=== PATIENT | female | born 1965 | race African-American/Black ===

== ENCOUNTER → 2019-04-19 | Outpatient (CLI) | payer OTHER | LOC: YHH 14:47 ==

== ENCOUNTER 2020-09-19 09:30 | Inpatient (IN) | payer OTHER ==
[2020-09-19 10:17] VITALS: BMI 26.7
[2020-09-19] MEDS ORDERED: chlordiazePOXIDE HCL 25 MG CAPSULE PO PRN (10:24)
[2020-09-19] MEDS ORDERED: BISMUTH SUBSALICYLATE 524 MG/30 ML UD PO PRN (10:24)
[2020-09-19] MEDS ORDERED: MAGNESIUM HYDROX 2400MG/30ML ORAL SUSPENSION 30 ML CUP PO PRN (10:24)
[2020-09-19] MEDS ORDERED: MENTHOL/PHENOL 1 EACH UD MM PRN (10:24)
[2020-09-19] MEDS ORDERED: IBUPROFEN 400 MG TABLET (FP) PO PRN (10:24)
[2020-09-19] MEDS ORDERED: ONDANSETRON *ODT* 4 MG TABLET SL PRN (10:24)
[2020-09-19] MEDS ORDERED: MAGNESIUM CITRATE 300 ML BOTTLE PO PRN (10:24)
[2020-09-19] MEDS ORDERED: METHOCARBAMOL 500 MG TABLET PO PRN (10:24)
[2020-09-19] MEDS ORDERED: MAG HYDROX/AL HYDROX/SIMETH 30 ML UNIT-DOSE CUP PO PRN (10:24)
[2020-09-19] MEDS: ACETAMINOPHEN 325 MG TABLET (FP) PO PRN (11:23)
[2020-09-19] MEDS: chlordiazePOXIDE HCL 25 MG CAPSULE PO SCH ×3 (11:23→23:13)
[2020-09-19] MEDS: PRENATAL VITAMINS W/ FOLIC ACID TABLET (FP) PO SCH (11:24)
[2020-09-19] MEDS: hydrOXYzine PAMOATE 25 MG CAPSULE (FP) PO SCH ×3 (13:42→23:13)
[2020-09-19 17:03] LABS: HEMATOCRIT 40.3 % (32.4-45.2); HEMOGLOBIN 13.4 GM/dL (10.7-15.3); MCH 32.1 pg (25.7-33.7); MCHC 33.2 g/dl (32.0-36.0); MEAN CELL VOLUME 96.6 fl (80-96); MEAN PLT VOLUME 7.6 fl (7.5-11.1); PLATELET COUNT 316 K/MM3 (134-434); RBC 4.17 M/mm3 (3.60-5.2); WHITE BLOOD COUNT 7.4 K/mm3 (4.0-10.0)
[2020-09-19 17:08] LABS: POTASSIUM 3.7 mmol/L (3.5-5.1)
[2020-09-19 17:11] LABS: CALCIUM 9.6 mg/dL (8.5-10.1)
[2020-09-19 17:12] LABS: BLOOD UREA NITROGEN 18.2 mg/dL (7-18)
[2020-09-19 17:15] LABS: CREATININE 1.2 mg/dL (0.55-1.3)
[2020-09-19 17:16] LABS: BILIRUBIN,TOTAL 0.8 mg/dL (0.2-1)
[2020-09-19 17:17] LABS: TOT PROT 7.6 g/dl (6.4-8.2)
[2020-09-19] MEDS: MELATONIN 5 MG TABLETS PO SCH (23:12)
[2020-09-19] MEDS: THIAMINE HCL 100 MG TABLET (FP) PO SCH (23:13)
[2020-09-20] MEDS: hydrOXYzine PAMOATE 25 MG CAPSULE (FP) PO SCH ×5 (05:33→22:28)
[2020-09-20] MEDS: chlordiazePOXIDE HCL 25 MG CAPSULE PO SCH ×4 (05:33→22:25)
[2020-09-20] MEDS: ACETAMINOPHEN 325 MG TABLET (FP) PO PRN ×3 (05:36→18:16)
[2020-09-20] MEDS: PRENATAL VITAMINS W/ FOLIC ACID TABLET (FP) PO SCH (10:47)
[2020-09-20] MEDS: NICOTINE POLACRILEX 2 MG GUM BUC PRN (18:15)
[2020-09-20] MEDS: THIAMINE HCL 100 MG TABLET (FP) PO SCH (22:25)
[2020-09-20] MEDS: AMITRIPTYLINE HCL 50 MG TABLET PO SCH (22:25)
[2020-09-20] MEDS: risperiDONE 1 MG TABLET PO SCH (22:25)
[2020-09-20] MEDS: MELATONIN 5 MG TABLETS PO SCH (22:26)
[2020-09-21] MEDS: chlordiazePOXIDE HCL 25 MG CAPSULE PO SCH ×4 (06:12→22:42)
[2020-09-21] MEDS: hydrOXYzine PAMOATE 25 MG CAPSULE (FP) PO SCH ×5 (06:14→22:41)
[2020-09-21] MEDS: PRENATAL VITAMINS W/ FOLIC ACID TABLET (FP) PO SCH (10:24)
[2020-09-21 12:03] LABS: POTASSIUM 4.5 mmol/L (3.5-5.1)
[2020-09-21 12:05] LABS: CALCIUM 8.5 mg/dL (8.5-10.1)
[2020-09-21 12:06] LABS: BLOOD UREA NITROGEN 15.6 mg/dL (7-18)
[2020-09-21 12:09] LABS: CREATININE 0.7 mg/dL (0.55-1.3)
[2020-09-21] MEDS: AMITRIPTYLINE HCL 50 MG TABLET PO SCH (22:40)
[2020-09-21] MEDS: THIAMINE HCL 100 MG TABLET (FP) PO SCH (22:41)
[2020-09-21] MEDS: MELATONIN 5 MG TABLETS PO SCH (22:41)
[2020-09-21] MEDS: risperiDONE 1 MG TABLET PO SCH (22:41)
[2020-09-21] MEDS: NICOTINE POLACRILEX 2 MG GUM BUC PRN (22:44)
[2020-09-22] MEDS ORDERED: chlordiazePOXIDE HCL 10 MG CAPSULE PO PRN
[2020-09-22] MEDS: hydrOXYzine PAMOATE 25 MG CAPSULE (FP) PO SCH ×5 (05:52→22:52)
[2020-09-22] MEDS: chlordiazePOXIDE HCL 10 MG CAPSULE PO SCH ×4 (05:53→22:53)
[2020-09-22] MEDS: PRENATAL VITAMINS W/ FOLIC ACID TABLET (FP) PO SCH (10:25)
[2020-09-22] MEDS: ACETAMINOPHEN 325 MG TABLET (FP) PO PRN (11:10)
[2020-09-22] MEDS: NICOTINE POLACRILEX 2 MG GUM BUC PRN (12:58)
[2020-09-22] MEDS: HYDROCHLOROTHIAZIDE 25 MG TABLET (FP) PO SCH (14:10)
[2020-09-22] MEDS: THIAMINE HCL 100 MG TABLET (FP) PO SCH (22:52)
[2020-09-22] MEDS: AMITRIPTYLINE HCL 25 MG TABLET PO SCH (22:52)
[2020-09-22] MEDS: MELATONIN 5 MG TABLETS PO SCH (22:52)
[2020-09-22] MEDS: risperiDONE 1 MG TABLET PO SCH (22:53)
[2020-09-23] MEDS: PRAMIPEXOLE DIHYDROCHLORIDE 0.25 MG TABLET PO SCH ×2 (00:24→22:05)
[2020-09-23] MEDS: hydrOXYzine PAMOATE 25 MG CAPSULE (FP) PO SCH ×5 (06:28→22:06)
[2020-09-23] MEDS: chlordiazePOXIDE HCL 10 MG CAPSULE PO SCH ×2 (06:28→17:50)
[2020-09-23] MEDS: PRENATAL VITAMINS W/ FOLIC ACID TABLET (FP) PO SCH (10:02)
[2020-09-23] MEDS: HYDROCHLOROTHIAZIDE 25 MG TABLET (FP) PO SCH (10:02)
[2020-09-23] MEDS: NICOTINE POLACRILEX 2 MG GUM BUC PRN (12:29)
[2020-09-23] MEDS: THIAMINE HCL 100 MG TABLET (FP) PO SCH (22:06)
[2020-09-23] MEDS: risperiDONE 1 MG TABLET PO SCH (22:06)
[2020-09-23] MEDS: MELATONIN 5 MG TABLETS PO SCH (22:06)
[2020-09-23] MEDS: AMITRIPTYLINE HCL 25 MG TABLET PO SCH (22:06)
[2020-09-24] MEDS ORDERED: chlordiazePOXIDE HCL 10 MG CAPSULE PO ONE (05:00)
[2020-09-24] MEDS: hydrOXYzine PAMOATE 25 MG CAPSULE (FP) PO SCH ×2 (05:31→10:28)
[2020-09-24 09:20] VITALS: BP 123/97; PULSE 76; TEMP 98.2
[2020-09-24] MEDS: HYDROCHLOROTHIAZIDE 25 MG TABLET (FP) PO SCH (10:27)
[2020-09-24] MEDS: PRENATAL VITAMINS W/ FOLIC ACID TABLET (FP) PO SCH (10:28)
== END 2020-09-24 10:32 | disposition home or self-care (01) | DRG 897 ==
LOC: YASAS 09:30 → Y6N 10:21
PROVIDERS: ADMIT Allergy & Immunology; ATTEND Allergy & Immunology
PROC: HZ2ZZZZ Detoxification Services for Substance Abuse Treatment (ICD-10-PCS; principal; 2020-09-19)
DX: F10.230 Alcohol dependence with withdrawal, uncomplicated (principal); F14.20 Cocaine dependence, uncomplicated; F12.20 Cannabis dependence, uncomplicated; F17.210 Nicotine dependence, cigarettes, uncomplicated; F19.24 Other psychoactive substance dependence with psychoactive substance-induced mood disorder; F25.9 Schizoaffective disorder, unspecified; F31.9 Bipolar disorder, unspecified; F41.8 Other specified anxiety disorders; I10 Essential (primary) hypertension; J45.909 Unspecified asthma, uncomplicated; M19.90 Unspecified osteoarthritis, unspecified site; M41.9 Scoliosis, unspecified; G89.29 Other chronic pain; R94.31 Abnormal electrocardiogram [ECG] [EKG]; R79.89 Other specified abnormal findings of blood chemistry; R73.03 Prediabetes; R20.0 Anesthesia of skin; Z88.6 Allergy status to analgesic agent; Z91.013 Allergy to seafood; Z91.018 Allergy to other foods; Z78.0 Asymptomatic menopausal state
CPT/HCPCS: 36415; 71046-TC-FY; 80048; 80053; 82962; 85027; 86780; C9803; J2794; U0003

== ENCOUNTER 2023-05-19 09:53 | Inpatient (IN) | payer OTHER ==
[2023-05-19 10:29] VITALS: BMI 27.1
[2023-05-19] MEDS ORDERED: POLYETHYLENE GLYCOL (HEALTHYLAX) 3350 17 GM PACKET PO PRN (10:54)
[2023-05-19] MEDS ORDERED: LOPERAMIDE HCL 2 MG CAPSULE PO PRN (10:54)
[2023-05-19] MEDS ORDERED: COLLOIDAL OATMEAL 1 BAR EACH TP PRN (10:54)
[2023-05-19] MEDS ORDERED: BENZOCAINE/MENTHOL (CHLORASEPTIC ) LOZENGE MM PRN (10:54)
[2023-05-19] MEDS ORDERED: MAG HYDROX/AL HYDROX/SIMETH 30 ML UNIT-DOSE CUP PO PRN (10:54)
[2023-05-19] MEDS ORDERED: BENZONATATE 200 MG CAPSULE PO PRN (10:54)
[2023-05-19] MEDS ORDERED: MAGNESIUM HYDROX 2400MG/30ML ORAL SUSPENSION 30 ML CUP PO PRN (10:54)
[2023-05-19] MEDS ORDERED: guaiFENesin 600 MG TABLET.ER (FP) PO PRN (10:54)
[2023-05-19] MEDS: LIDOCAINE 5% TOPICAL PATCH TP SCH (17:42)
[2023-05-19] MEDS: ACETAMINOPHEN 325 MG TABLET (FP) PO PRN (18:40)
[2023-05-19] MEDS: NICOTINE POLACRILEX 2 MG GUM BUC PRN (18:42)
[2023-05-19 19:45] LABS: EPI CELLS 7 /uL (0-25.1); HYALINE CASTS 0 /uL (0-3.1); URINE APPEARANCE CLEAR; URINE BACTERIA 3 /uL (0-1359); URINE BILIRUBIN NEGATIVE (NEGATIVE); URINE COLOR YELLOW; URINE GLUCOSE (UA) NEGATIVE (NEGATIVE); URINE KETONE NEGATIVE (NEGATIVE); URINE LEUK ESTERASE TRACE (NEGATIVE); URINE NITRITE NEGATIVE (NEGATIVE); URINE PROTEIN NEGATIVE (NEGATIVE); URINE RBC 9 /uL (0-23.9); URINE UROBILINOGEN 0.2 mg/dL (0.2-1.0); URINE WBC 7 /uL (0-25.8)
[2023-05-19] MEDS ORDERED: LISINOPRIL 5 MG TABLET PO ONE (20:03)
[2023-05-19] MEDS: THIAMINE HCL 100 MG TABLET (FP) PO SCH (21:19)
[2023-05-19] MEDS: traZODone HCL 100 MG TABLET (FP) PO SCH (21:19)
[2023-05-19] MEDS: LIDOCAINE PATCH REMOVAL MC SCH (21:19)
[2023-05-19] MEDS ORDERED: MELATONIN 5 MG TABLETS PO SCH (22:00)
[2023-05-20] MEDS ORDERED: PATIENT'S OWN MEDICATION (NON-FORMULARY) (Fluoxetine Hcl [Prozac] 40 MG Capsule) PO SCH (10:00)
[2023-05-20] MEDS: LIDOCAINE 5% TOPICAL PATCH TP SCH (10:07)
[2023-05-20] MEDS: PRENATAL VITAMINS W/ FOLIC ACID TABLET (FP) PO SCH (10:08)
[2023-05-20] MEDS: ACETAMINOPHEN 325 MG TABLET (FP) PO PRN (10:08)
[2023-05-20] MEDS: FLUoxetine HCL 20 MG CAPSULE PO SCH (10:09)
[2023-05-20 11:03] LABS: POTASSIUM 3.9 mmol/L (3.5-5.1)
[2023-05-20 11:14] LABS: BLOOD UREA NITROGEN 5.7 mg/dL (7-18)
[2023-05-20 11:15] LABS: ALBUMIN 3.2 g/dl (3.4-5.0)
[2023-05-20 11:18] LABS: CREATININE 0.7 mg/dL (0.55-1.3)
[2023-05-20 11:19] LABS: BILIRUBIN,TOTAL 0.4 mg/dL (0.2-1)
[2023-05-20 11:22] LABS: TOT PROT 6.2 g/dl (6.4-8.2)
[2023-05-20 11:34] LABS: SYPHILIS W/ RPR CONF NON-REACTIVE (NONREACTIVE)
[2023-05-20 11:51] LABS: HEMATOCRIT 39.5 % (32.4-45.2); HEMOGLOBIN 12.9 GM/dL (10.7-15.3); MCH 30.4 pg (25.7-33.7); MCHC 32.6 g/dl (32.0-36.0); MEAN CELL VOLUME 93.2 fl (80-96); MEAN PLT VOLUME 7.9 fl (7.5-11.1); PLATELET COUNT 285 10^3/uL (134-434); RBC 4.24 M/mm3 (3.60-5.2); WHITE BLOOD COUNT 3.2 K/mm3 (4.0-10.0)
[2023-05-20] MEDS ORDERED: TUBERCULIN PPD 5 TU/0.1ML SYRINGE (IN PATIENT USE ONLY) ID ONE (12:00)
[2023-05-20] MEDS ORDERED: NICOTINE 14 MG/24 HOURS TOPICAL PATCH TD SCH (15:45)
[2023-05-20] MEDS: THIAMINE HCL 100 MG TABLET (FP) PO SCH (21:16)
[2023-05-20] MEDS: LIDOCAINE PATCH REMOVAL MC SCH (21:16)
[2023-05-20] MEDS: CYCLOBENZAPRINE HCL 5 MG TABLET PO SCH (21:16)
[2023-05-20] MEDS: traZODone HCL 100 MG TABLET (FP) PO SCH (21:16)
[2023-05-21] MEDS: CYCLOBENZAPRINE HCL 5 MG TABLET PO SCH ×3 (07:42→21:13)
[2023-05-21] MEDS ORDERED: LISINOPRIL 5 MG PO SCH (10:00)
[2023-05-21] MEDS: LIDOCAINE 5% TOPICAL PATCH TP SCH (10:25)
[2023-05-21] MEDS: NICOTINE 7 MG/24 HOURS TOPICAL PATCH TD SCH (10:25)
[2023-05-21] MEDS: PRENATAL VITAMINS W/ FOLIC ACID TABLET (FP) PO SCH (10:25)
[2023-05-21] MEDS: FLUoxetine HCL 20 MG CAPSULE PO SCH (10:25)
[2023-05-21] MEDS: LISINOPRIL 5 MG TABLET PO SCH (10:25)
[2023-05-21] MEDS: traZODone HCL 100 MG TABLET (FP) PO SCH (21:13)
[2023-05-21] MEDS: LIDOCAINE PATCH REMOVAL MC SCH (21:13)
[2023-05-21] MEDS: THIAMINE HCL 100 MG TABLET (FP) PO SCH (21:14)
[2023-05-22] MEDS: CYCLOBENZAPRINE HCL 5 MG TABLET PO SCH ×3 (06:18→21:08)
[2023-05-22] MEDS: FLUoxetine HCL 20 MG CAPSULE PO SCH (09:29)
[2023-05-22] MEDS: LISINOPRIL 5 MG TABLET PO SCH (09:29)
[2023-05-22] MEDS: NICOTINE 7 MG/24 HOURS TOPICAL PATCH TD SCH (09:29)
[2023-05-22] MEDS: ACETAMINOPHEN 325 MG TABLET (FP) PO PRN ×2 (09:30→15:50)
[2023-05-22] MEDS: LIDOCAINE 5% TOPICAL PATCH TP SCH (09:32)
[2023-05-22] MEDS: PRENATAL VITAMINS W/ FOLIC ACID TABLET (FP) PO SCH (10:05)
[2023-05-22] MEDS: traZODone HCL 100 MG TABLET (FP) PO SCH (21:08)
[2023-05-22] MEDS: THIAMINE HCL 100 MG TABLET (FP) PO SCH (21:08)
[2023-05-22] MEDS: LIDOCAINE PATCH REMOVAL MC SCH (21:49)
[2023-05-23] MEDS: CYCLOBENZAPRINE HCL 5 MG TABLET PO SCH ×3 (06:14→21:13)
[2023-05-23] MEDS: LISINOPRIL 5 MG TABLET PO SCH (10:44)
[2023-05-23] MEDS: FLUoxetine HCL 20 MG CAPSULE PO SCH (10:44)
[2023-05-23] MEDS: PRENATAL VITAMINS W/ FOLIC ACID TABLET (FP) PO SCH (10:44)
[2023-05-23] MEDS: LIDOCAINE 5% TOPICAL PATCH TP SCH (10:44)
[2023-05-23] MEDS: NICOTINE 7 MG/24 HOURS TOPICAL PATCH TD SCH (10:45)
[2023-05-23] MEDS ORDERED: FLU VACC QS2022-23(6MOS UP)/PF 60 MCG/0.5 ML SYRINGE IM ONE (12:39)
[2023-05-23] MEDS ORDERED: PNEUMOCOCCAL 23 VACCINE 0.5 ML VIAL IM ONE (12:40)
[2023-05-23] MEDS ORDERED: FLU VACCINE (FLULAVAL) PF 60 MCG/0.5 ML SYRINGE 2023-2024 IM ONE (14:30)
[2023-05-23] MEDS ORDERED: PNEUMOC 20-VAL CONJ-DIP CRM/PF 0.5 ML SYRINGE IM ONE (15:00)
[2023-05-23] MEDS: traZODone HCL 100 MG TABLET (FP) PO SCH (21:13)
[2023-05-23] MEDS: LIDOCAINE PATCH REMOVAL MC SCH (21:13)
[2023-05-23] MEDS: THIAMINE HCL 100 MG TABLET (FP) PO SCH (21:13)
[2023-05-24] MEDS: CYCLOBENZAPRINE HCL 5 MG TABLET PO SCH ×3 (06:03→21:28)
[2023-05-24] MEDS: LIDOCAINE 5% TOPICAL PATCH TP SCH (10:08)
[2023-05-24] MEDS: LISINOPRIL 5 MG TABLET PO SCH (10:08)
[2023-05-24] MEDS: PRENATAL VITAMINS W/ FOLIC ACID TABLET (FP) PO SCH (10:08)
[2023-05-24] MEDS: FLUoxetine HCL 20 MG CAPSULE PO SCH (10:08)
[2023-05-24] MEDS: NICOTINE 7 MG/24 HOURS TOPICAL PATCH TD SCH (10:08)
[2023-05-24] MEDS: NICOTINE POLACRILEX 2 MG GUM BUC PRN (16:53)
[2023-05-24] MEDS: THIAMINE HCL 100 MG TABLET (FP) PO SCH (21:28)
[2023-05-24] MEDS: traZODone HCL 100 MG TABLET (FP) PO SCH (21:28)
[2023-05-24] MEDS: LIDOCAINE PATCH REMOVAL MC SCH (21:48)
[2023-05-25] MEDS: CYCLOBENZAPRINE HCL 5 MG TABLET PO SCH ×3 (06:59→21:10)
[2023-05-25] MEDS: LISINOPRIL 5 MG TABLET PO SCH (09:58)
[2023-05-25] MEDS: NICOTINE 7 MG/24 HOURS TOPICAL PATCH TD SCH (09:58)
[2023-05-25] MEDS: PRENATAL VITAMINS W/ FOLIC ACID TABLET (FP) PO SCH (09:58)
[2023-05-25] MEDS: FLUoxetine HCL 20 MG CAPSULE PO SCH (09:58)
[2023-05-25] MEDS: ACETAMINOPHEN 325 MG TABLET (FP) PO PRN (09:59)
[2023-05-25] MEDS: LIDOCAINE 5% TOPICAL PATCH TP SCH (10:00)
[2023-05-25] MEDS: THIAMINE HCL 100 MG TABLET (FP) PO SCH (21:10)
[2023-05-25] MEDS: traZODone HCL 100 MG TABLET (FP) PO SCH (21:10)
[2023-05-25] MEDS: LIDOCAINE PATCH REMOVAL MC SCH (21:11)
[2023-05-26] MEDS: CYCLOBENZAPRINE HCL 5 MG TABLET PO SCH ×3 (07:15→21:21)
[2023-05-26] MEDS: NICOTINE 7 MG/24 HOURS TOPICAL PATCH TD SCH (10:03)
[2023-05-26] MEDS: LISINOPRIL 5 MG TABLET PO SCH (10:04)
[2023-05-26] MEDS: FLUoxetine HCL 20 MG CAPSULE PO SCH (10:04)
[2023-05-26] MEDS: PRENATAL VITAMINS W/ FOLIC ACID TABLET (FP) PO SCH (10:04)
[2023-05-26] MEDS: LIDOCAINE 5% TOPICAL PATCH TP SCH (10:14)
[2023-05-26] MEDS: NICOTINE POLACRILEX 2 MG GUM BUC PRN (11:00)
[2023-05-26] MEDS: THIAMINE HCL 100 MG TABLET (FP) PO SCH (21:21)
[2023-05-26] MEDS: traZODone HCL 100 MG TABLET (FP) PO SCH (21:21)
[2023-05-26] MEDS: [UNRECOGNIZED DRUG - OTHER] PO SCH (21:28)
[2023-05-26] MEDS: PALIPERIDONE PO SCH (21:28)
[2023-05-26] MEDS: LIDOCAINE PATCH REMOVAL MC SCH (21:29)
[2023-05-27] MEDS: CYCLOBENZAPRINE HCL 5 MG TABLET PO SCH (06:14)
[2023-05-27] MEDS: PRENATAL VITAMINS W/ FOLIC ACID TABLET (FP) PO SCH (09:52)
[2023-05-27] MEDS: NICOTINE 7 MG/24 HOURS TOPICAL PATCH TD SCH (09:52)
[2023-05-27] MEDS: FLUoxetine HCL 20 MG CAPSULE PO SCH (09:53)
[2023-05-27] MEDS: LISINOPRIL 5 MG TABLET PO SCH (09:53)
[2023-05-27] MEDS: LIDOCAINE 5% TOPICAL PATCH TP SCH (09:59)
[2023-05-27] MEDS: THIAMINE HCL 100 MG TABLET (FP) PO SCH (21:18)
[2023-05-27] MEDS: LIDOCAINE PATCH REMOVAL MC SCH (21:18)
[2023-05-27] MEDS: CYCLOBENZAPRINE HCL 5 MG TABLET PO PRN (21:18)
[2023-05-27] MEDS: traZODone HCL 100 MG TABLET (FP) PO SCH (21:18)
[2023-05-27] MEDS: [UNRECOGNIZED DRUG - OTHER] PO SCH (21:20)
[2023-05-27] MEDS: PALIPERIDONE PO SCH (21:20)
[2023-05-28] MEDS: CYCLOBENZAPRINE HCL 5 MG TABLET PO PRN ×2 (06:42→21:51)
[2023-05-28] MEDS: NICOTINE POLACRILEX 2 MG GUM BUC PRN (06:43)
[2023-05-28] MEDS: PRENATAL VITAMINS W/ FOLIC ACID TABLET (FP) PO SCH (10:18)
[2023-05-28] MEDS: NICOTINE 7 MG/24 HOURS TOPICAL PATCH TD SCH (10:18)
[2023-05-28] MEDS: LISINOPRIL 5 MG TABLET PO SCH (10:18)
[2023-05-28] MEDS: FLUoxetine HCL 20 MG CAPSULE PO SCH (10:18)
[2023-05-28] MEDS: LIDOCAINE 5% TOPICAL PATCH TP SCH (10:20)
[2023-05-28] MEDS: [UNRECOGNIZED DRUG - OTHER] PO SCH (21:50)
[2023-05-28] MEDS: THIAMINE HCL 100 MG TABLET (FP) PO SCH (21:50)
[2023-05-28] MEDS: traZODone HCL 100 MG TABLET (FP) PO SCH (21:50)
[2023-05-28] MEDS: PALIPERIDONE PO SCH (21:50)
[2023-05-28] MEDS: LIDOCAINE PATCH REMOVAL MC SCH (22:37)
[2023-05-29] MEDS: NICOTINE 7 MG/24 HOURS TOPICAL PATCH TD SCH (10:05)
[2023-05-29] MEDS: FLUoxetine HCL 20 MG CAPSULE PO SCH (10:05)
[2023-05-29] MEDS: LIDOCAINE 5% TOPICAL PATCH TP SCH (10:05)
[2023-05-29] MEDS: PRENATAL VITAMINS W/ FOLIC ACID TABLET (FP) PO SCH (10:05)
[2023-05-29] MEDS: CYCLOBENZAPRINE HCL 5 MG TABLET PO PRN (10:05)
[2023-05-29] MEDS: LISINOPRIL 5 MG TABLET PO SCH (10:06)
[2023-05-29] MEDS: ACETAMINOPHEN 325 MG TABLET (FP) PO PRN ×2 (10:07→21:37)
[2023-05-29] MEDS: [UNRECOGNIZED DRUG - OTHER] PO SCH (13:39)
[2023-05-29] MEDS: PALIPERIDONE PO SCH (13:39)
[2023-05-29] MEDS: THIAMINE HCL 100 MG TABLET (FP) PO SCH (21:35)
[2023-05-29] MEDS: traZODone HCL 100 MG TABLET (FP) PO SCH (21:35)
[2023-05-29] MEDS: LIDOCAINE PATCH REMOVAL MC SCH (21:50)
[2023-05-30] MEDS: CYCLOBENZAPRINE HCL 5 MG TABLET PO PRN ×3 (10:12→21:32)
[2023-05-30] MEDS: FLUoxetine HCL 20 MG CAPSULE PO SCH (10:12)
[2023-05-30] MEDS: NICOTINE 7 MG/24 HOURS TOPICAL PATCH TD SCH (10:12)
[2023-05-30] MEDS: LIDOCAINE 5% TOPICAL PATCH TP SCH (10:12)
[2023-05-30] MEDS: LISINOPRIL 5 MG TABLET PO SCH (10:12)
[2023-05-30] MEDS: PALIPERIDONE PO SCH (10:12)
[2023-05-30] MEDS: [UNRECOGNIZED DRUG - OTHER] PO SCH (10:12)
[2023-05-30] MEDS: PRENATAL VITAMINS W/ FOLIC ACID TABLET (FP) PO SCH (10:13)
[2023-05-30] MEDS: ACETAMINOPHEN 325 MG TABLET (FP) PO PRN ×2 (16:41→21:33)
[2023-05-30] MEDS: NICOTINE POLACRILEX 2 MG GUM BUC PRN (16:42)
[2023-05-30] MEDS: THIAMINE HCL 100 MG TABLET (FP) PO SCH (21:32)
[2023-05-30] MEDS: traZODone HCL 100 MG TABLET (FP) PO SCH (21:33)
[2023-05-30] MEDS: LIDOCAINE PATCH REMOVAL MC SCH (21:33)
[2023-05-31] MEDS: NICOTINE 7 MG/24 HOURS TOPICAL PATCH TD SCH (09:06)
[2023-05-31] MEDS: LISINOPRIL 5 MG TABLET PO SCH (09:07)
[2023-05-31] MEDS: FLUoxetine HCL 20 MG CAPSULE PO SCH (09:07)
[2023-05-31] MEDS: PRENATAL VITAMINS W/ FOLIC ACID TABLET (FP) PO SCH (09:08)
[2023-05-31] MEDS: [UNRECOGNIZED DRUG - OTHER] PO SCH (09:09)
[2023-05-31] MEDS: PALIPERIDONE PO SCH (09:09)
[2023-05-31] MEDS: CYCLOBENZAPRINE HCL 5 MG TABLET PO PRN ×2 (09:09→21:20)
[2023-05-31] MEDS: LIDOCAINE 5% TOPICAL PATCH TP SCH (09:09)
[2023-05-31] MEDS: ACETAMINOPHEN 325 MG TABLET (FP) PO PRN ×2 (09:10→21:20)
[2023-05-31] MEDS: NICOTINE POLACRILEX 2 MG GUM BUC PRN (09:11)
[2023-05-31] MEDS: THIAMINE HCL 100 MG TABLET (FP) PO SCH (21:20)
[2023-05-31] MEDS: traZODone HCL 100 MG TABLET (FP) PO SCH (21:20)
[2023-05-31] MEDS: LIDOCAINE PATCH REMOVAL MC SCH (21:21)
[2023-06-01] MEDS: NICOTINE 7 MG/24 HOURS TOPICAL PATCH TD SCH (09:55)
[2023-06-01] MEDS: FLUoxetine HCL 20 MG CAPSULE PO SCH (09:55)
[2023-06-01] MEDS: PRENATAL VITAMINS W/ FOLIC ACID TABLET (FP) PO SCH (09:56)
[2023-06-01] MEDS: LISINOPRIL 5 MG TABLET PO SCH (09:56)
[2023-06-01] MEDS: ACETAMINOPHEN 325 MG TABLET (FP) PO PRN ×3 (09:57→21:10)
[2023-06-01] MEDS: CYCLOBENZAPRINE HCL 5 MG TABLET PO PRN ×2 (09:57→21:11)
[2023-06-01] MEDS: LIDOCAINE 5% TOPICAL PATCH TP SCH (10:00)
[2023-06-01] MEDS ORDERED: PALIPERIDONE PALMITATE (INVEGA) 117 MG/0.75 ML SYRINGE IM ONE ×2 (10:00→12:00)
[2023-06-01] MEDS: PALIPERIDONE PO SCH (10:01)
[2023-06-01] MEDS: [UNRECOGNIZED DRUG - OTHER] PO SCH (10:01)
[2023-06-01] MEDS ORDERED: PALIPERIDONE 6 MG TAB.ER.24 PO ONE ×2 (13:45→14:30)
[2023-06-01] MEDS: traZODone HCL 100 MG TABLET (FP) PO SCH (21:11)
[2023-06-01] MEDS: THIAMINE HCL 100 MG TABLET (FP) PO SCH (21:11)
[2023-06-01] MEDS: LIDOCAINE PATCH REMOVAL MC SCH (21:56)
[2023-06-02] MEDS ORDERED: PALIPERIDONE PALMITATE (INVEGA) 117 MG/0.75 ML SYRINGE IM ONE (10:00)
[2023-06-02] MEDS: PRENATAL VITAMINS W/ FOLIC ACID TABLET (FP) PO SCH (10:21)
[2023-06-02] MEDS: LIDOCAINE 5% TOPICAL PATCH TP SCH (10:21)
[2023-06-02] MEDS: ACETAMINOPHEN 325 MG TABLET (FP) PO PRN ×2 (10:22→21:16)
[2023-06-02] MEDS: NICOTINE 7 MG/24 HOURS TOPICAL PATCH TD SCH (10:22)
[2023-06-02] MEDS: FLUoxetine HCL 20 MG CAPSULE PO SCH (10:24)
[2023-06-02] MEDS: LISINOPRIL 5 MG TABLET PO SCH (10:24)
[2023-06-02] MEDS: CYCLOBENZAPRINE HCL 5 MG TABLET PO PRN ×2 (10:26→21:16)
[2023-06-02] MEDS: NICOTINE POLACRILEX 2 MG GUM BUC PRN (11:03)
[2023-06-02] MEDS: LIDOCAINE PATCH REMOVAL MC SCH (21:16)
[2023-06-02] MEDS: THIAMINE HCL 100 MG TABLET (FP) PO SCH (21:16)
[2023-06-02] MEDS: traZODone HCL 100 MG TABLET (FP) PO SCH (21:16)
[2023-06-03] MEDS: LIDOCAINE 5% TOPICAL PATCH TP SCH (10:15)
[2023-06-03] MEDS: PRENATAL VITAMINS W/ FOLIC ACID TABLET (FP) PO SCH (10:15)
[2023-06-03] MEDS: ACETAMINOPHEN 325 MG TABLET (FP) PO PRN ×3 (10:15→21:15)
[2023-06-03] MEDS: NICOTINE 7 MG/24 HOURS TOPICAL PATCH TD SCH (10:16)
[2023-06-03] MEDS: CYCLOBENZAPRINE HCL 5 MG TABLET PO PRN ×2 (10:16→21:15)
[2023-06-03] MEDS: FLUoxetine HCL 20 MG CAPSULE PO SCH (10:16)
[2023-06-03] MEDS: LISINOPRIL 5 MG TABLET PO SCH (10:17)
[2023-06-03] MEDS: THIAMINE HCL 100 MG TABLET (FP) PO SCH (21:14)
[2023-06-03] MEDS: LIDOCAINE PATCH REMOVAL MC SCH (21:14)
[2023-06-03] MEDS: traZODone HCL 100 MG TABLET (FP) PO SCH (21:14)
[2023-06-04] MEDS: PRENATAL VITAMINS W/ FOLIC ACID TABLET (FP) PO SCH (10:12)
[2023-06-04] MEDS: NICOTINE 7 MG/24 HOURS TOPICAL PATCH TD SCH (10:12)
[2023-06-04] MEDS: LISINOPRIL 5 MG TABLET PO SCH (10:12)
[2023-06-04] MEDS: CYCLOBENZAPRINE HCL 5 MG TABLET PO PRN ×2 (10:12→21:40)
[2023-06-04] MEDS: FLUoxetine HCL 20 MG CAPSULE PO SCH (10:12)
[2023-06-04] MEDS: LIDOCAINE 5% TOPICAL PATCH TP SCH (10:13)
[2023-06-04] MEDS: ACETAMINOPHEN 325 MG TABLET (FP) PO PRN ×2 (10:13→21:40)
[2023-06-04] MEDS: traZODone HCL 100 MG TABLET (FP) PO SCH (21:40)
[2023-06-04] MEDS: THIAMINE HCL 100 MG TABLET (FP) PO SCH (21:40)
[2023-06-04] MEDS: LIDOCAINE PATCH REMOVAL MC SCH (21:42)
[2023-06-05] MEDS: ACETAMINOPHEN 325 MG TABLET (FP) PO PRN ×2 (10:11→21:14)
[2023-06-05] MEDS: FLUoxetine HCL 20 MG CAPSULE PO SCH (10:11)
[2023-06-05] MEDS: LISINOPRIL 5 MG TABLET PO SCH (10:50)
[2023-06-05] MEDS: NICOTINE 7 MG/24 HOURS TOPICAL PATCH TD SCH (10:50)
[2023-06-05] MEDS: LIDOCAINE 5% TOPICAL PATCH TP SCH (10:50)
[2023-06-05] MEDS: PRENATAL VITAMINS W/ FOLIC ACID TABLET (FP) PO SCH (10:50)
[2023-06-05] MEDS: THIAMINE HCL 100 MG TABLET (FP) PO SCH (21:13)
[2023-06-05] MEDS: traZODone HCL 100 MG TABLET (FP) PO SCH (21:13)
[2023-06-05] MEDS: LIDOCAINE PATCH REMOVAL MC SCH (21:14)
[2023-06-06] MEDS: NICOTINE 7 MG/24 HOURS TOPICAL PATCH TD SCH (10:10)
[2023-06-06] MEDS: PRENATAL VITAMINS W/ FOLIC ACID TABLET (FP) PO SCH (10:10)
[2023-06-06] MEDS: LIDOCAINE 5% TOPICAL PATCH TP SCH (10:10)
[2023-06-06] MEDS: CYCLOBENZAPRINE HCL 10 MG TABLET (FP) PO PRN ×2 (10:12→21:26)
[2023-06-06] MEDS: FLUoxetine HCL 20 MG CAPSULE PO SCH (10:12)
[2023-06-06] MEDS: LISINOPRIL 5 MG TABLET PO SCH (10:12)
[2023-06-06] MEDS: ACETAMINOPHEN 325 MG TABLET (FP) PO PRN ×2 (10:13→21:26)
[2023-06-06] MEDS: traZODone HCL 100 MG TABLET (FP) PO SCH (21:26)
[2023-06-06] MEDS: THIAMINE HCL 100 MG TABLET (FP) PO SCH (21:26)
[2023-06-06] MEDS: LIDOCAINE PATCH REMOVAL MC SCH (21:28)
[2023-06-07 07:31] VITALS: TEMP 97.6
[2023-06-07] MEDS: CYCLOBENZAPRINE HCL 10 MG TABLET (FP) PO PRN ×2 (10:17→21:24)
[2023-06-07] MEDS: FLUoxetine HCL 20 MG CAPSULE PO SCH (10:17)
[2023-06-07] MEDS: LISINOPRIL 5 MG TABLET PO SCH (10:17)
[2023-06-07] MEDS: PRENATAL VITAMINS W/ FOLIC ACID TABLET (FP) PO SCH (10:17)
[2023-06-07] MEDS: LIDOCAINE 5% TOPICAL PATCH TP SCH (10:17)
[2023-06-07] MEDS: ACETAMINOPHEN 325 MG TABLET (FP) PO PRN ×2 (10:18→21:25)
[2023-06-07] MEDS: NICOTINE 7 MG/24 HOURS TOPICAL PATCH TD SCH (10:18)
[2023-06-07] MEDS: NICOTINE POLACRILEX 2 MG GUM BUC PRN (10:19)
[2023-06-07] MEDS: LIDOCAINE PATCH REMOVAL MC SCH (21:25)
[2023-06-07] MEDS: traZODone HCL 100 MG TABLET (FP) PO SCH (21:25)
[2023-06-07] MEDS: THIAMINE HCL 100 MG TABLET (FP) PO SCH (21:25)
[2023-06-08 07:50] VITALS: RESP 18
[2023-06-08] MEDS: CYCLOBENZAPRINE HCL 10 MG TABLET (FP) PO PRN ×2 (10:01→21:16)
[2023-06-08] MEDS: PRENATAL VITAMINS W/ FOLIC ACID TABLET (FP) PO SCH (10:01)
[2023-06-08] MEDS: FLUoxetine HCL 20 MG CAPSULE PO SCH (10:02)
[2023-06-08] MEDS: ACETAMINOPHEN 325 MG TABLET (FP) PO PRN ×2 (10:02→21:16)
[2023-06-08] MEDS: LISINOPRIL 5 MG TABLET PO SCH (10:02)
[2023-06-08] MEDS: NICOTINE 7 MG/24 HOURS TOPICAL PATCH TD SCH (10:02)
[2023-06-08] MEDS: LIDOCAINE 5% TOPICAL PATCH TP SCH (10:05)
[2023-06-08] MEDS: NICOTINE POLACRILEX 2 MG GUM BUC PRN ×3 (12:33→21:18)
[2023-06-08] MEDS: traZODone HCL 100 MG TABLET (FP) PO SCH (21:16)
[2023-06-08] MEDS: THIAMINE HCL 100 MG TABLET (FP) PO SCH (21:16)
[2023-06-08] MEDS: LIDOCAINE PATCH REMOVAL MC SCH (21:16)
[2023-06-09 07:15] VITALS: BP 147/95; PULSE 80
[2023-06-09] MEDS: PRENATAL VITAMINS W/ FOLIC ACID TABLET (FP) PO SCH (09:39)
[2023-06-09] MEDS: CYCLOBENZAPRINE HCL 10 MG TABLET (FP) PO PRN (09:39)
[2023-06-09] MEDS: ACETAMINOPHEN 325 MG TABLET (FP) PO PRN (09:39)
[2023-06-09] MEDS: FLUoxetine HCL 20 MG CAPSULE PO SCH (09:39)
[2023-06-09] MEDS: LIDOCAINE 5% TOPICAL PATCH TP SCH (09:39)
[2023-06-09] MEDS: NICOTINE 7 MG/24 HOURS TOPICAL PATCH TD SCH (09:39)
[2023-06-09] MEDS: LISINOPRIL 5 MG TABLET PO SCH (09:39)
[2023-06-09] MEDS ORDERED: LIDOCAINE 4% PATCH TP SCH (10:54)
== END 2023-06-09 09:45 | disposition home or self-care (01) | DRG 895 ==
LOC: YASAS 09:53 → Y5N 16:20
PROVIDERS: ADMIT Allergy & Immunology; ATTEND Psychiatry & Neurology Pain Medicine
PROC: HZ42ZZZ Group Counseling for Substance Abuse Treatment, Cognitive-Behavioral (ICD-10-PCS; principal; 2023-05-19)
DX: F10.20 Alcohol dependence, uncomplicated (principal); F14.20 Cocaine dependence, uncomplicated; F19.282 Other psychoactive substance dependence with psychoactive substance-induced sleep disorder; F12.20 Cannabis dependence, uncomplicated; F17.210 Nicotine dependence, cigarettes, uncomplicated; F31.9 Bipolar disorder, unspecified; F25.9 Schizoaffective disorder, unspecified; I10 Essential (primary) hypertension; J45.909 Unspecified asthma, uncomplicated; M54.50 Low back pain, unspecified; R76.11 Nonspecific reaction to tuberculin skin test without active tuberculosis
CPT/HCPCS: 36415; 71046-TC-FY; 80053; 81003; 81025; 85027; 86780; 86803; 87635; 90677; 90686; G0008; J2426